=== PATIENT | female | born 1990 | race Caucasian/White ===

== ENCOUNTER 2017-07-02 12:04 | Emergency (ER) | payer MEDICAID, OTHER ==
[~2017-07-02] VITALS: Ht 162.6 cm; Wt 66.0 kg
[~2017-07-02 12:04] MED LIST: SERT25TA83 PO; ZOLO50TA PO
[2017-07-02 12:05] VITALS: BP 126/73; PULSE 86; RESP 20; TEMP 98.5; O2SAT 99
--- NOTE | 2017-07-02 13:38 | RADRPT ---
EXAM DATE/TIME: 07/02/2017 13:14 [place] COMPARISON: No previous studies available for comparison. INDICATIONS : Right lateral foot bruising and pain since rolling it yesterday. MEDICAL HISTORY : None. SURGICAL HISTORY : None. ENCOUNTER: Initial ACUITY: 2 days PAIN SCORE: 4/10 LOCATION: Right lateral foot. FINDINGS: Three view examination of the right foot demonstrates no soft tissue swelling, dislocation, or fractu re. The tarsal bones appear intact. The interphalangeal and metatarsophalangeal joints are intact. The calcaneus is intact. Bony mineralization is normal. CONCLUSION: Negative for fracture Carson Banuelos MD FACR on July 02, 2017 at 13:35 Board Certified Radiologist. This report was verified electronically.
[2017-07-02] MEDS ORDERED: PARO25CR PO (13:44)
--- NOTE | 2017-07-02 14:26 | PD ---
HPI Chief Complaint: Musculoskeletal Complaint Time Seen by Provider: 14:17 Travel History International Travel<30 days: No Contact w/Intl Traveler<30days: No Traveled to known affect area: No History of Present Illness HPI 26-year-old female presents to the ED for evaluation of 5/10 medial right foot pain. Described as throbbing, worsened by ambulation. No alleviating factors reported. Onset after she stepped off a curb and fell 3 days ago. She has been ambulatory since the accident. She endorses appended needles feeling but denies weakness or limitations to range of motion. She has been treating with compression, ice and rest with no improvement of symptoms. She saw her primary care this morning who urged her to come to the ED for an x-ray. PFSH Past Medical History Blood Disorders: No Heart Rhythm Problems: No Cancer: No Cardiovascular Problems: No High Cholesterol: No Chest Pain: No Congestive Heart Failure: No Diminished Hearing: No Endocrine: No Genitourinary: No Hypertension: Yes () Immune Disorder: No Musculoskeletal: No Neurologic: No Reproductive: No Respiratory: No ?: Unknown LMP: IUD : 5 Para: 3 Miscarriage: 1 Past Surgical History Other Surgery: Yes (bilateral ureter reimplantation) Social History Alcohol Use: No Tobacco Use: No Substance Use: No Allergies-Medications (Allergen,Severity, Reaction): Coded Allergies: nitrofurantoin (Unverified Adverse Reaction, Intermediate, 07/02/17) Apparently had difficulty breathing Reported Meds & Prescriptions Reported Meds & Active Scripts Active Reported Paxil CR (Paroxetine HCl) 25 Mg Tab 25 Mg PO DAILY Review of Systems Except as stated in HPI: all other systems reviewed are Neg Physical Exam Narrative GENERAL: Well-nourished, well-developed female in no acute distress. SKIN: Focused skin assessment warm/dry. HEAD: Normocephalic. EYES: No scleral icterus. No injection or drainage. NECK: Supple, trachea midline. No JVD or lymphadenopathy. CARDIOVASCULAR: Regular rate and rhythm without murmurs, gallops, or rubs. RESPIRATORY: Breath sounds equal bilaterally. No accessory muscle use. GASTROINTESTINAL: Abdomen soft, non-tender, nondistended. MUSCULOSKELETAL: No cyanosis, or edema. Focused right lower extremity exam: 2+ DP pulse. Tender to palpation of the medial aspect of the right foot. Mild edema. No ecchymosis noted. Patient is able to wiggle her toes, flex and extend the ankle. Sensation intact to light touch distally. Cap refill less than 2 seconds. BACK: Nontender without obvious deformity. No CVA tenderness. Data Data Last Documented VS Vital Signs Date Time Temp Pulse Resp B/P (MAP) Pulse Ox O2 Delivery O2 Flow Rate FiO2 07/02/17 12:05 98.5 86 20 126/73 (90) 99 Room Air Orders Orders Foot, Complete ([id number]) (07/02/17 ) Ed Discharge Order (07/02/17 14:27) MDM Medical Decision Making Medical Screen Exam Complete: Yes Emergency Medical Condition: Yes Differential Diagnosis Contusion versus sprain versus fracture versus other Narrative Course 26-year-old female presents to the ED for evaluation of 5/10 medial right foot pain. Onset after she stepped off a curb and fell 3 days ago. Vitals reviewed. On exam there is tenderness and mild edema of the inner aspect of the right foot but exam is otherwise unremarkable. X-ray reveals no acute fracture per radiology read. This is a sprain. Patient's instructed to RICE, follow with the recycling manager. She indicated understanding of the instructions and is agreeable care plan. This patient stable discharged home. Diagnosis Primary Impression: Right foot sprain Qualified Codes: S93.601A - Unspecified sprain of right foot, initial encounter Referrals: [facility] Patient Instructions: Foot Sprain (ED), General Instructions Additional Instructions: Rest, ice, elevate the extremity. Apply ice no longer than 10-15 minutes per hour a few times a day. [id number] anti-inflammatory medications as described on the label, as needed for pain. Return to normal, gentle activity as tolerated. No running, jumping activities for the next few weeks. Follow up with the recycling manager. Return to the ED for any urgent or emergent medical condition. Disposition: 01 DISCHARGE HOME Condition: Stable Harmony Valera Jul 02, 2017 14:26
== END 2017-07-02 14:41 | disposition home or self-care (01) ==
LOC: NEPK 12:04
DX: S93.601A Unspecified sprain of right foot, initial encounter (principal); I10 Essential (primary) hypertension; W22.09XA Striking against other stationary object, initial encounter
CPT/HCPCS: 73630; 99283